=== PATIENT | female | born 1980 | race African-American/Black ===

== ENCOUNTER 2018-10-03 19:54 | Emergency (ER) | payer SELFPAY ==
--- NOTE | 2018-10-03 20:22 | PDOC ---
Rapid Medical Evaluation Medical Evaluation: I have performed a brief in-person evaluation of this patient. The patient presents with a chief complaint of: Hx of HTN; c/o hiccups for >1 month, now with occasional CP and SOB; also c/o RLE swelling for around a month ; mentions having liposuction and BBL done in July and afterward, the sxs started; denies use of OCPs Pertinent physical exam findings: In NAD, +edema of RLE, no calf tenderness I have ordered the following: Labs, EKG, CXR, RLE ultrasound The patient will proceed to the ED for further evaluation. 10/03/18 20:18
[2018-10-03 20:27] VITALS: PULSE 71; TEMP 98; BMI 30.7
[2018-10-03 21:00] LABS: BASO % 1.9 % (0-2.0); EOS % 3.4 % (0-4.5); HEMATOCRIT 38.2 % (32.4-45.2); HEMOGLOBIN 12.7 GM/dL (10.7-15.3); LYMPH % 43.8 % (8-40); MCH 29.1 pg (25.7-33.7); MCHC 33.4 g/dl (32.0-36.0); MEAN CELL VOLUME 87.1 fl (80-96); MEAN PLT VOLUME 10.4 fl (7.5-11.1); MONO % 6.3 % (3.8-10.2); NEUT % 44.6 % (42.8-82.8); RBC 4.38 M/mm3 (3.60-5.2); RDW 14.8 % (11.6-15.6); WHITE BLOOD COUNT 5.8 K/mm3 (4.0-10.0)
[2018-10-03 21:12] LABS: INR 0.98 (0.83-1.09); PROTHROMBIN TIME (PATIENT) 11.6 SEC (9.7-13.0)
[2018-10-03 21:14] LABS: ACTIVATED PTT 32.6 SECONDS (25.2-36.5)
[2018-10-03 21:26] LABS: PLATELET COUNT 280 K/MM3 (134-434)
[2018-10-03 21:27] LABS: PLATELET ESTIMATE ADEQUATE
[2018-10-03 21:37] LABS: ANION GAP 8 MMOL/L (8-16); BLOOD UREA NITROGEN 18 mg/dL (7-18); CALCIUM 9.1 mg/dL (8.5-10.1); CHLORIDE 105 mmol/L (98-107); CO2 24 mmol/L (21-32); GLUCOSE,RANDOM 98 mg/dL (74-106); POTASSIUM 4.3 mmol/L (3.5-5.1); SODIUM 137 mmol/L (136-145)
--- NOTE | 2018-10-03 23:19 | PDOC ---
History of Present Illness - General Chief Complaint: Shortness of Breath Stated Complaint: HIPCUP/DISCOMFORT Time Seen by Provider: 10/03/18 20:17 History Source: Patient - History of Present Illness Initial Comments: 10/03/18 23:37 The patient is a 38 year old female with a PMH of HTN and recent liposuction and fat transfer to her buttocks who presents to the ED with multiple complaints including shortness of breath, intermittent chest pain, R sided numbness and RLE swelling. Patient states all of her symptoms began in late July after she returned to the [place] from having surgery in [place]. Chest pain has occured on three occasions since returning to the ED and is substernal, aching and has resolved with Tylenol. Shortness of breath occurs 10x daily and is often accompanied by a hiccup. Patient came to the ED this evening because a friend told her she needed to come for further evaluation. As per EMR no previous evaluation in our ED. NKDA Surgical: Liposuction, Buttock fat transfer Social: denies toxic habits Past History - Past Medical History Allergies/Adverse Reactions: Allergies Allergy/AdvReac Type Severity Reaction Status Date / Time No Known Allergies Allergy Verified 10/03/18 20:27 COPD: No HTN: Yes - Suicide/Smoking/Psychosocial Hx Smoking History: Never smoked Have you smoked in the past 12 months: No Information on smoking cessation initiated: No Hx Alcohol Use: No Drug/Substance Use Hx: No Review of Systems - Review of Systems Constitutional: No: Chills, Fever HEENTM: No: Recent change in vision Respiratory: Yes: Shortness of Breath, Other (Hiccup). No: Cough Cardiac (ROS): Yes: Chest Pain. No: Lightheadedness, Palpitations, Syncope ABD/GI: No: Constipated, Diarrhea, Nausea, Vomiting *Physical Exam - Vital Signs Last Vital Signs Temp Pulse Resp BP Pulse Ox 98.0 F 71 16 183/89 H 100 10/03/18 20:23 10/03/18 20:23 10/03/18 20:23 10/03/18 20:23 10/03/18 23:02 - Physical Exam Comments: 10/04/18 00:24 Awake, alert, speaks in whispers S1, S2, no M/R/G Soft non-tender abdomen, (+) bowel sounds Multiple well healed abdominal scars, B/L buttock scars Moderate Sedation - Procedure Monitoring Vital Signs: Procedure Monitoring Vital Signs Temperature 98.0 F 10/03/18 20:23 Pulse Rate 71 10/03/18 20:23 Respiratory Rate 16 10/03/18 20:23 Blood Pressure 183/89 H 10/03/18 20:23 O2 Sat by Pulse Oximetry (%) 100 10/03/18 23:02 Heart Score/ECG Review - ECG Impressions Comment:: 10/04/18 02:07 HR 67, no MARLIN/STD/TWI - non-ischemic EKG ED Treatment Course - LABORATORY CBC & Chemistry Diagram: 10/03/18 20:45 10/03/18 20:45 - ADDITIONAL ORDERS Additional order review: Laboratory Results 10/03/18 10/03/18 10/03/18 20:45 20:45 20:30 PT with INR 11.60 INR 0.98 PTT (Actin FS) 32.6 Sodium 137 Potassium 4.3 Chloride 105 Carbon Dioxide 24 Anion Gap 8 BUN 18 Creatinine 1.0 Creat Clearance w eGFR 61.41 Random Glucose 98 Calcium 9.1 Troponin I < 0.02 Urine HCG, Qual Negative 10/03/18 20:45 RBC 4.38 MCV 87.1 MCHC 33.4 RDW 14.8 MPV 10.4 Neutrophils % 44.6 Lymphocytes % 43.8 H Monocytes % 6.3 Eosinophils % 3.4 Basophils % 1.9 Medical Decision Making - Medical Decision Making 10/04/18 00:26 38 year female with multiple medical complaints associated with surgery in [place] including dyspnea, subjective parathesias and and R LE edema. Hypertensive (183 /89) other VS unremarkable. Will evaluate for PE, r/o ACS as well as DVT. 10/04/18 01:[address] negative for acute ischemia CTA negative for PE EKG non-ischemic as documented in EKG section of EMR 10/04/18 01:43 DVT studies negative VSS 10/04/18 01:55 Repeat neuro exam equivocal. Will discharge patient home with neurology follow-up, PMD referral and return precautions. Clinical Impression: Subjective parasthesias, dyspnea *DC/Admit/Observation/Transfer Diagnosis at time of Disposition: Hiccups, Paresthesia, Dyspnea, History of plastic surgery - Discharge Dispostion Disposition: HOME Condition at time of disposition: Good Decision to Admit order: No - Referrals Referrals: Matt Hall MD [Staff Physician] - Chvaa Galvan MD [Staff Physician] - - Patient Instructions Printed Discharge Instructions: DI for Shortness of Breath Additional Instructions: Please make a follow-up appointment with neurology for evaluation of your numbness. We have included a referral or you can call your insurance company for a list of doctors. An appointment has been made with a primary care doctor as well. Your care is not complete until you are evaluated by neurology and primary care. Return to the Emergency Department for any new/worsening/concerning symptoms. - Post Discharge Activity
--- NOTE | 2018-10-03 23:29 | PDOC ---
Attending Attestation - HPI HPI: 10/03/18 23:57 The patient is a 38 YOF with no PMH who presents complaining of "episodes where she is gasping for air" since a liposuction and [place] butt lift done this past July. Patient is also complaining of occasional chest pain. Patient reports having 3 episodes of chest pain today, typically lasting for an hour that resolve with Tylenol. Allergies: NKDA Surgeries: liposuction, BBL Social Hx: No reported alcohol, drug or cigarette use. - Physicial Exam PE: 10/03/18 23:57 Agrees with resident's exam. <Shahana Tmo - Last Filed: 10/03/18 23:57> - Resident Resident Name: Yanci Zaidi - ED Attending Attestation I have performed the following: I have examined & evaluated the patient, The case was reviewed & discussed with the resident, I agree w/resident's findings & plan - Medical Decision Making 10/04/18 01:43 38-year-old female status post liposuction and 5 transfer complaining of intermittent paresthesias to the upper extremities as well as intermittent chest pain for several months CT scan of the brain as well as CTA of the chest were within normal limits Patient will be discharged and has been advised to follow up with neurology as well as primary care <Adela Delatorre - Last Filed: 10/04/18 01:43>
[2018-10-04 01:49] VITALS: BP 145/82
--- NOTE | 2018-10-04 12:04 | EKG ---
Test Reason : Blood Pressure : / mmHG Vent. Rate : 067 BPM Atrial Rate : 067 BPM P-R Int : 112 ms QRS Dur : 086 ms QT Int : 402 ms P-R-T Axes : 046 055 043 degrees QTc Int : 424 ms NORMAL SINUS RHYTHM WITH SINUS ARRHYTHMIA NORMAL ECG NO PREVIOUS ECGS AVAILABLE Confirmed by NEY VILLALOBOS MD ([id number]) on 10/04/2018 12:03:25 PM Referred By: Confirmed By:NEY VILLALOBOS MD
== END 2018-10-04 02:08 | disposition home or self-care (01) ==
LOC: JER 19:54
DX: R06.09 Other forms of dyspnea (principal); R20.2 Paresthesia of skin; Z98.890 Other specified postprocedural states
CPT/HCPCS: 36415; 70450-TC; 71275-TC; 80048; 84484; 84703; 85025; 85610; 85730; 93005; 93010; 93971-TC; 99283-25